=== PATIENT | male | born 1955 | race Caucasian/White ===

== ENCOUNTER 2022-04-04 11:30 | Day surgery (SDCO) | payer OTHER ==
[~2022-04-04] VITALS: Ht 177.8 cm; Wt 75.9 kg
[2022-04-04 12:06] LABS: BASOPHIL 0.6 % (0-2); EOSINOPHIL 3.2 % (0-7); HCT 37.2 % (42.0-52.0); HGB 12.2 g/dl (13.2-18.0); LYMPHOCYTE 18.2 % (15-48); MCH 30.8 pg (25.0-31.0); MCHC 32.8 g/dL (32.0-36.0); MCV 93.9 fL (78.0-100.0); MONOCYTE 8.5 % (0-12); MPV 12.6 fL (6.0-9.5); NEUTROPHIL 69.1 % (41-80); NRBC 0; PLT 168 K/uL (150-400); RBC 3.96 M/uL (4.70-6.00); RDW 14.2 % (11.5-14.0)
[2022-04-04 12:11] LABS: INR 1.11 (0.9-1.2); PROTHROMBIN TIME 13.7 SECONDS (11.8-13.4); PTT 33.9 SECONDS (24.4-34.7)
[2022-04-04 12:24] LABS: ALBUMIN 3.2 g/dL (3.4-5.0); BILIRUBIN - TOTAL 0.6 mg/dL (0.2-1.0); BUN/CREAT RATIO (CALC) 13.8 RATIO; CREATININE 1.16 mg/dL (0.67-1.17); GLOBULIN (CALCULATION) 4.1 g/dL; POTASSIUM 3.4 mmol/L (3.5-5.1); TOTAL PROTEIN 7.3 g/dL (6.4-8.2)
[2022-04-04 13:32] LABS: BILIRUBIN NEGATIVE (NEGATIVE); BLOOD NEGATIVE Ery/uL (NEGATIVE); CLARITY CLEAR (CLEAR); COLOR YELLOW (YELLOW); GLUCOSE (U) NORMAL (NORMAL); LEUKOCYTES NEGATIVE Leu/uL (NEGATIVE); NITRITE NEGATIVE (NEGATIVE); PROTEIN TRACE (LOW) mg/dL (NEGATIVE); SPECIFIC GRAVITY 1.025 (1.001-1.030); UROBILINOGEN 0.2 mg/dL (0.2-1.0)
[2022-04-04 13:34] LABS: AMPHETAMINES NEGATIVE (NEGATIVE); BARBITURATES NEGATIVE (NEGATIVE); ECSTASY (MDMA) NEGATIVE (NEGATIVE); MARIJUANA (THC) NEGATIVE (NEGATIVE); METHADONE NEGATIVE (NEGATIVE); OPIATES NEGATIVE (NEGATIVE); OXYCODONE NEGATIVE (NEGATIVE)
[2022-04-04 13:42] LABS: MUCOUS TRACE; SQUAMOUS EPITHELIAL CELLS RARE; URINARY RBC RARE; URINARY WBC RARE
[2022-04-04] MEDS ORDERED: ASPIRIN EC81 M1 PO (15:35)
[2022-04-04] MEDS ORDERED: CARVEDILOL6.25 MG PO (15:35)
[2022-04-04] MEDS ORDERED: FARXIGA10 MG PO (15:37)
[2022-04-04] MEDS ORDERED: HYDROXYZINE 10M10 MG PO (15:37)
[2022-04-04] MEDS ORDERED: LISINOPRIL5 MG PO (15:38)
[2022-04-04] MEDS ORDERED: NITROGLYCERIN0.4 MG SL (15:38)
[2022-04-04] MEDS ORDERED: MELATONIN3 MG PO (15:38)
[2022-04-04] MEDS ORDERED: ISOSORBIDE MONO60 M1 PO (15:39)
[2022-04-04] MEDS ORDERED: ATORVASTATIN CA40 MG PO (15:39)
[2022-04-04] MEDS ORDERED: CLOPIDOGREL75 MG PO (15:39)
[2022-04-04] MEDS ORDERED: LASIX40 MG PO (15:40)
[2022-04-05 06:23] LABS: RETICULOCYTE COUNT 0.9 % (1.0-2.0)
[2022-04-05 06:54] LABS: IRON % SATURATION 19.7 %SAT (20-50)
[2022-04-05 07:57] LABS: BASOPHIL 0.7 % (0-2); EOSINOPHIL 6.7 % (0-7); HGB 11.8 g/dl (13.2-18.0); LYMPHOCYTE 29.4 % (15-48); MCH 30.9 pg (25.0-31.0); MCHC 32.8 g/dL (32.0-36.0); MCV 94.2 fL (78.0-100.0); MONOCYTE 8.3 % (0-12); NEUTROPHIL 54.8 % (41-80); NRBC 0; PLT 164 K/uL (150-400); RBC 3.82 M/uL (4.70-6.00); RDW 14.2 % (11.5-14.0); WBC 6.8 K/uL (4.0-10.5)
[2022-04-05 07:58] LABS: BUN/CREAT RATIO (CALC) 11.4 RATIO; CREATININE 1.14 mg/dL (0.67-1.17); POTASSIUM 4.3 mmol/L (3.5-5.1)
--- NOTE | 2022-04-05 14:45 | NUR ---
04/05/22 A social work referral was received re: housing insecurity. Mr. Lomax reports to have taken a [employer] bus from [place] to [facility] 3 days ago. He had been in [place] for 3 years. He lived in [place], [place] for 19 years and worked. He reports "things to have gone down hill" Since the deaths of his father, mother, sister and former spouse between 2004 and 2014. - Mr. Lomax receives SSI of $864.00. - Mr. Lomax doesn't have definitive plan. - He was educated [facility], and [facility]. A cab voucher was provided to [facility].
[2022-04-05] MEDS ORDERED: HCTZ12.5 MG PO (15:24)
[2022-04-05] MEDS ORDERED: NITROGLYCERIN0.4 MG SL (15:24)
[2022-04-05] MEDS ORDERED: CARVEDILOL6.25 MG PO (15:24)
[2022-04-05] MEDS ORDERED: HYDROXYZINE 10M10 MG PO (15:24)
[2022-04-05] MEDS ORDERED: ATORVASTATIN CA40 MG PO (15:24)
[2022-04-05] MEDS ORDERED: ISOSORBIDE MONO60 M1 PO (15:24)
[2022-04-05] MEDS ORDERED: PRINIVIL20 MG PO (15:24)
[2022-04-05] MEDS ORDERED: CLOPIDOGREL75 MG PO (15:24)
[2022-04-05] MEDS ORDERED: MELATONIN3 MG PO (15:24)
[2022-04-05] MEDS ORDERED: ASPIRIN EC81 M1 PO (15:24)
== END 2022-04-05 16:22 | disposition home or self-care (01) ==
LOC: FER 11:30 → FTCU 13:16
PROVIDERS: Emergency Medicine; Nurse Practitioner Acute Care; ADMIT Family Medicine
DX: I25.118 Atherosclerotic heart disease of native coronary artery with other forms of angina pectoris (principal); I11.9 Hypertensive heart disease without heart failure; J90 Pleural effusion, not elsewhere classified; E87.6 Hypokalemia; E46 Unspecified protein-calorie malnutrition; D50.9 Iron deficiency anemia, unspecified; J98.11 Atelectasis; H57.89 Other specified disorders of eye and adnexa; E78.5 Hyperlipidemia, unspecified; E88.09 Other disorders of plasma-protein metabolism, not elsewhere classified; F17.210 Nicotine dependence, cigarettes, uncomplicated; Z86.73 Personal history of transient ischemic attack (TIA), and cerebral infarction without residual deficits; Z95.1 Presence of aortocoronary bypass graft; Z20.822 Contact with and (suspected) exposure to COVID-19; Z79.02 Long term (current) use of antithrombotics/antiplatelets; Z79.82 Long term (current) use of aspirin
CPT/HCPCS: 36415; 70551; 71045; 80048; 80053; 80305; 81001; 82553; 82728; 83036; 83540; 83550; 84443; 84484; 85025; 85610; 85730; 93005; 94640; G0378; J1650; U0002